=== PATIENT | male | born 1995 | race African-American/Black ===

== ENCOUNTER 2018-08-22 19:33 | Emergency (ER) | payer OTHER ==
[2018-08-22] MEDS ORDERED: ACETAMINOPHEN 500 MG TAB ONE (20:03)
[2018-08-22] MEDS ORDERED: HYDROCODONE/CHLORPHEN 5 ML/OSYR ONE (20:34)
--- NOTE | 2018-08-22 21:18 | RAD REPORT ---
EXAM DESCRIPTION: RAD - Chest Pa And Lat (2 Views) - 08/22/2018 8:35 pm CLINICAL HISTORY: Cough;Fever Chest pain. COMPARISON: CHEST PA AND LAT 2 VIEW dated 08/08/2012; CHEST PA AND LAT 2 VIEW dated 05/04/2009; CHEST P A AND LAT 2 VIEW dated 11/16/1996 FINDINGS: Small airspace opacity seen in the right mid lung compatible with pneumonia. The lungs are otherwise clear. The heart is normal in size. No displaced fractures. IMPRESSION: Right mid lung pneumonia.
[2018-08-22 21:45] LABS: Absolute Lymphocytes (CBC) 1.6 K/uL (0.7-4.9); Absolute Monocytes 0.8 K/uL (0.1-1.3); Basophils % 0.5 % (0-1.3); Eosinophils % 0.4 % (0-4.4); Hematocrit 40.2 % (39.6-49.0); Lymphocytes % 19.1 % (15.3-44.8); MPV 7.8 fL (7.6-11.3); Monocytes % 9.3 % (3.3-12.3); RBC Red Blood Cell Count 4.84 M/uL (4.33-5.43)
[2018-08-22] MEDS ORDERED: CEFTRIAXONE/SWI 1gm 1 GM/10 ML SYR ONE (21:53)
[2018-08-22] MEDS ORDERED: NA CHLORIDE 0.9% 1,000 ML ONE (21:53)
[2018-08-22 21:55] LABS: Potassium 3.4 mmol/L (3.5-5.1)
--- NOTE | 2018-08-22 22:05 | RAD REPORT ---
EXAM DESCRIPTION: CT - Chest For Pe Angio - 08/22/2018 9:55 pm CLINICAL HISTORY: Chest pain. CHEST PAIN COMPARISON: No comparisons TECHNIQUE: CT angiogram of the pulmonary arteries was performed with MIP. All CT scans are performed using dose optimization technique as appropriate and may include automated exposure control or mA/KV adjustment according to patient size. FINDINGS: No evidence of pulmonary thromboembolism. No acute aortic finding demonstrated. Rounded 4 cm peripherally located density is seen in the superior segment right lower lobe with subtl e internal cavity. Elsewhere, the lungs are grossly clear. No significant pericardial or pleural fluid. No concerning bony finding. IMPRESSION: No evidence of pulmonary thromboembolism. 4 cm rounded airspace opacity with subtle internal cavity in the superior segment right lower lobe ma y represent a cavitary pneumonia. Tuberculosis is another consideration. Recommend follow-up imaging until complete clearance.
--- NOTE | 2018-08-22 22:55 | EDPHYS ---
Physician Documentation [facility] Name: Jag Washington Age: 23 yrs Sex: Male : 1995 Arrival Date: 08/22/2018 Time: 19:40 Bed 26 Private MD: None, None ED Physician Frankie Marr HPI: 08/22 23:09 This 23 yrs old Black Male presents to ER via Ambulatory with complaints of Shortness snw Of Breath. 23:09 The patient has shortness of breath at rest. Onset: The symptoms/episode began/occurred snw suddenly, 1 day(s) ago, and became persistent. Duration: The symptoms are continuous. Associated signs and symptoms: The patient has no apparent associated signs or symptoms. Severity of symptoms: At their worst the symptoms were moderate. The patient has not experienced similar symptoms in the past. The patient has not recently seen a physician. Historical: - Allergies: 19:48 No Known Allergies; la1 - Home Meds: 19:48 None [Active]; la1 - PMHx: 19:48 None; la1 - PSHx: 19:48 None; la1 - Immunization history:: Adult Immunizations up to date. - Social history:: Smoking status: Patient/guardian denies using tobacco. - Ebola Screening: : No symptoms or risks identified at this time. ROS: 23:08 Constitutional: Negative for fever, chills, and weight loss, Eyes: Negative for injury, snw pain, redness, and discharge, ENT: Negative for injury, pain, and discharge, Neck: Negative for injury, pain, and swelling, Abdomen/GI: Negative for abdominal pain, nausea, vomiting, diarrhea, and constipation, Back: Negative for injury and pain, : Negative for injury, bleeding, discharge, and swelling, MS/Extremity: Negative for injury and deformity, Skin: Negative for injury, rash, and discoloration, Neuro: Negative for headache, weakness, numbness, tingling, and seizure. 23:08 Cardiovascular: Positive for chest pain. 23:08 Respiratory: Positive for pain with respirations. Exam: 23:07 Constitutional: This is a well developed, well nourished patient who is awake, alert, snw and in no acute distress. Head/Face: Normocephalic, atraumatic. Eyes: Pupils equal round and reactive to light, extra-ocular motions intact. Lids and lashes normal. Conjunctiva and sclera are non-icteric and not injected. Cornea within normal limits. Periorbital areas with no swelling, redness, or edema. ENT: Nares patent. No nasal discharge, no septal abnormalities noted. Tympanic membranes are normal and external auditory canals are clear. Oropharynx with no redness, swelling, or masses, exudates, or evidence of obstruction, uvula midline. Mucous membranes moist. Neck: Trachea midline, no thyromegaly or masses palpated, and no cervical lymphadenopathy. Supple, full range of motion without nuchal rigidity, or vertebral point tenderness. No Meningismus. Chest/axilla: Normal chest wall appearance and motion. Nontender with no deformity. No lesions are appreciated. Cardiovascular: Regular rate and rhythm with a normal S1 and S2. No gallops, murmurs, or rubs. Normal PMI, no JVD. No pulse deficits. Abdomen/GI: Soft, non-tender, with normal bowel sounds. No distension or tympany. No guarding or rebound. No evidence of tenderness throughout. Back: No spinal tenderness. No costovertebral tenderness. Full range of motion. Skin: Warm, dry with normal turgor. Normal color with no rashes, no lesions, and no evidence of cellulitis. MS/ Extremity: Pulses equal, no cyanosis. Neurovascular intact. Full, normal range of motion. Neuro: Awake and alert, GCS 15, oriented to person, place, time, and situation. Cranial nerves II-XII grossly intact. Motor strength 5/5 in all extremities. Sensory grossly intact. Cerebellar exam normal. Normal gait. 23:07 Respiratory: the patient does not display signs of respiratory distress, Respirations: normal, Breath sounds: are clear throughout. Vital Signs: 19:48 BP 139 / 92; Pulse 101; Resp 18; Temp 102.0(O); Pulse Ox 97% on R/A; Weight 136.08 kg; la1 Height 6 ft. 3 in. (190.50 cm); 22:09 BP 136 / 69; Pulse 89 MON; Resp 17 S; Temp 100.8(O); Pulse Ox 98% on R/A; rv 22:30 BP 127 / 58; Pulse 81; Resp 17; Pulse Ox 98% ; rv 23:00 BP 128 / 72; Pulse 80; Resp 17 S; Pulse Ox 99% on R/A; rv 19:48 Body Mass Index 37.50 (136.08 kg, 190.50 cm) la1 MDM: 20:09 Patient medically screened. snw 23:09 Data reviewed: vital signs, nurses notes. Data interpreted: Pulse oximetry: on room air snw is 98 %. Interpretation: normal. Counseling: I had a detailed discussion with the patient and/or guardian regarding: the historical points, exam findings, and any diagnostic results supporting the discharge/admit diagnosis, lab results, radiology results, the need for outpatient follow up, to return to the emergency department if symptoms worsen or persist or if there are any questions or concerns that arise at home. Special discussion: Based on the patient's history, exam, and Dx evaluation, there is no indication for emergent intervention or inpatient Tx. It is understood by the patient/guardian that if the Sx's persist or worsen they need to return immediately for re-evaluation. Based on the history and exam findings, there is no indication for further emergent testing or inpatient evaluation. I discussed with the patient/guardian the need to see the primary care provider for further evaluation of the symptoms. I discussed with the patient/guardian the need to see the high school learning support teacher for further evaluation of the symptoms. 23:10 ED course: discussed need to follow up with Dr. Gr and make sure the pneumonia or snw lung process clears. Discussed need to follow until clear and potential dx of TB. Pt and his Mom voice understanding. 08/22 20:06 Order name: Flu; Complete Time: 21:26 snw 08/22 21:23 Order name: Blood Culture* snw 08/22 20:06 Order name: Chest Pa And Lat (2 Views) XRAY; Complete Time: 21:21 snw 08/22 21:23 Order name: CT Chest For PE Angio; Complete Time: 22:25 snw 08/22 21:23 Order name: CBC with Diff; Complete Time: 22:25 snw 08/22 21:23 Order name: Chem 7; Complete Time: 22:25 snw Administered Medications: 19:55 Drug: Tylenol 1000 mg Route: PO; la1 23:15 Follow up: Response: Temperature is decreased rv 20:28 Drug: Tussionex Pennkinetic ER 5 ml Route: PO; rv 23:15 Follow up: Response: Marked relief of symptoms rv 22:07 Drug: NS 0.9% 1000 ml Route: IV; Rate: 1 bolus; Site: right antecubital; rv 23:15 Follow up: IV Status: Completed infusion rv 22:08 Drug: Rocephin 1 grams Route: IV; Rate: calculated rate; Site: right antecubital; rv 23:15 Follow up: IV Status: Completed infusion rv 23:34 Drug: rifampin 300 mg Route: PO; rv 23:34 Follow up: Response: Medication administered at discharge. rv Disposition: 08/23 02:26 Co-signature as Attending Physician, Frankie Marr MD. pkl Disposition: 08/22/18 22:54 Discharged to Home. Impression: Pneumonia, unspecified organism. - Condition is Stable. - Discharge Instructions: Fever, Adult, Community-Acquired Pneumonia, Adult, Cough, Adult. - Prescriptions for rifampin 300 mg Oral capsule - take 2 capsule by ORAL route once daily with water, 1 hour before or 2 hours after a meal; 20 capsule. Albuterol Sulfate 90 mcg/actuation - inhale 1-2 puff by INHALATION route every 4-6 hours; 1 Inhaler. Zithromax 500 mg Oral Tablet - take 1 tablet by ORAL route once daily for 5 days; 5 tablet. - Work release form, Medication Reconciliation Form, Thank You Letter, Antibiotic Education, Prescription Opioid Use form. - Follow up: Emergency Department; When: As needed; Reason: Worsening of condition. Follow up: Scott Gr MD; When: 1 week; Reason: Recheck today's complaints, Continuance of care. Signatures: Dispatcher [employer] EDFrankie Gauthier MD MD pkRenee Alonso FNP-Alee MACHINE OPERATOR PICKER-Chidi Mccollum RN RN laLaith Braden, RN RN rv Corrections: (The following items were deleted from the chart) 08/22 23:36 22:54 08/22/2018 22:54 Discharged to Home. Impression: Pneumonia, unspecified organism. rv Condition is Stable. Forms are Medication Reconciliation Form, Thank You Letter, Antibiotic Education, Prescription Opioid Use. Follow up: Emergency Department; When: As needed; Reason: Worsening of condition. Follow up: Scott Gr; When: 1 week; Reason: Recheck today's complaints, Continuance of care. snw
--- NOTE | 2018-08-22 22:55 | ER ---
Nurse's Notes [facility] Name: Jag Washington Age: 23 yrs Sex: Male : 1995 Arrival Date: 08/22/2018 Time: 19:40 Bed 26 Private MD: None, None Diagnosis: Pneumonia, unspecified organism Presentation: 08/22 19:47 Presenting complaint: Patient states: I have had a cough for a couple days and I am la1 getting SOB, I also have a pain on the right side up by my ribs. Transition of care: patient was not received from another setting of care. Onset of symptoms was August 22, 2018. Risk Assessment: Do you want to hurt yourself or someone else? Patient reports no desire to harm self or others. Initial Sepsis Screen: Does the patient meet any 2 criteria? No. Patient's initial sepsis screen is negative. Does the patient have a suspected source of infection? No. Patient's initial sepsis screen is negative. Care prior to arrival: None. 19:47 Method Of Arrival: Ambulatory la1 19:47 Acuity: DAVID 3 la1 Triage Assessment: 20:12 General: Appears in no apparent distress. uncomfortable. Respiratory: Reports shortness rv of breath Onset: The symptoms/episode began/occurred yesterday, the patient has mild shortness of breath. Historical: - Allergies: 19:48 No Known Allergies; la1 - Home Meds: 19:48 None [Active]; la1 - PMHx: 19:48 None; la1 - PSHx: 19:48 None; la1 - Immunization history:: Adult Immunizations up to date. - Social history:: Smoking status: Patient/guardian denies using tobacco. - Ebola Screening: : No symptoms or risks identified at this time. Screenin:12 Abuse screen: Denies threats or abuse. Denies injuries from another. Nutritional rv screening: No deficits noted. Tuberculosis screening: No symptoms or risk factors identified. Fall Risk None identified. Assessment: 20:11 General: Appears in no apparent distress. uncomfortable, Behavior is calm, cooperative. rv Pain: Denies pain. Neuro: Level of Consciousness is awake, alert, obeys commands, Oriented to person, place, time, situation. Cardiovascular: Rhythm is regular. Respiratory: Airway is patent Respiratory effort is even, Breath sounds are clear bilaterally. GI: No signs and/or symptoms were reported involving the gastrointestinal system. : No signs and/or symptoms were reported regarding the genitourinary system. EENT: No signs and/or symptoms were reported regarding the EENT system. Derm: Skin is intact. Musculoskeletal: No signs and/or symptoms reported regarding the musculoskeletal system. Vital Signs: 19:48 BP 139 / 92; Pulse 101; Resp 18; Temp 102.0(O); Pulse Ox 97% on R/A; Weight 136.08 kg; la1 Height 6 ft. 3 in. (190.50 cm); 22:09 BP 136 / 69; Pulse 89 MON; Resp 17 S; Temp 100.8(O); Pulse Ox 98% on R/A; rv 22:30 BP 127 / 58; Pulse 81; Resp 17; Pulse Ox 98% ; rv 23:00 BP 128 / 72; Pulse 80; Resp 17 S; Pulse Ox 99% on R/A; rv 19:48 Body Mass Index 37.50 (136.08 kg, 190.50 cm) la1 ED Course: 19:40 Patient arrived in ED. mr 19:40 None, None is Private Physician. mr 19:47 Triage completed. la1 19:48 Arm band placed on right wrist. la1 20:05 Renee Tarango FNP-C [facility]. snw 20:05 Frankie Marr MD is Attending Physician. snw 20:12 Patient has correct armband on for positive identification. Bed in low position. Call rv light in reach. Side rails up X 1. Adult w/ patient. Pulse ox on. NIBP on. 20:33 Chest Pa And Lat (2 Views) XRAY In Process Unspecified. EDMS 21:30 Initial lab(s) drawn, by me, sent to lab. First set of blood cultures drawn by me. rv 21:45 CBC with Diff Sent. rv 21:45 Chem 7 Sent. rv 21:45 Inserted saline lock: 20 gauge in right antecubital area, using aseptic technique. rv Blood collected. 21:45 Second set of blood cultures drawn by me. rv 21:55 CT Chest For PE Angio In Process Unspecified. EDMS 21:56 CT completed. Patient moved to CT via wheelchair. Patient moved back from CT. kc3 22:53 Scott Gr MD is Referral Physician. snw 23:16 No provider procedures requiring assistance completed. IV discontinued, bleeding rv controlled, No redness/swelling at site. Pressure dressing applied. Administered Medications: 19:55 Drug: Tylenol 1000 mg Route: PO; la1 23:15 Follow up: Response: Temperature is decreased rv 20:28 Drug: Tussionex Pennkinetic ER 5 ml Route: PO; rv 23:15 Follow up: Response: Marked relief of symptoms rv 22:07 Drug: NS 0.9% 1000 ml Route: IV; Rate: 1 bolus; Site: right antecubital; rv 23:15 Follow up: IV Status: Completed infusion rv 22:08 Drug: Rocephin 1 grams Route: IV; Rate: calculated rate; Site: right antecubital; rv 23:15 Follow up: IV Status: Completed infusion rv 23:34 Drug: rifampin 300 mg Route: PO; rv 23:34 Follow up: Response: Medication administered at discharge. rv Outcome: 22:54 Discharge ordered by . snw 23:17 Discharged to home ambulatory. rv 23:17 Condition: good 23:17 Discharge instructions given to patient, family, Instructed on discharge instructions, follow up and referral plans. medication usage, Demonstrated understanding of instructions, follow-up care, medications, Prescriptions given X 3. 23:36 Patient left the ED. rv Signatures: Dispatcher [employer] EDMS Renee Tarango, [employer] INVENTORY CLERK-C [employer] IN[employer]ORY CLERK-Nicole Melina Suarez JhonatanChidi RN RN Rubia Ness3 Laith Chavez RN RN rv
[2018-08-22 23:51] VITALS: TEMP 100.8
[2018-08-22 23:53] VITALS: BP 128/72; O2SAT 99
== END 2018-08-22 23:36 | disposition home or self-care (01) ==
LOC: ER 19:33
DX: J18.9 Pneumonia, unspecified organism (principal)
CPT/HCPCS: 36415; 71046; 71275; 80048; 85025; 87040; 87804; 96365; 99284; J0696; J7030; Q9967